=== PATIENT | female | born 1940 | race Caucasian/White ===

== ENCOUNTER 2019-04-01 07:49 | Day surgery (SDC) | payer OTHER ==
[2019-03-18 10:10] LABS: HEMATOCRIT 40.5 % (37.0-47.0); HEMOGLOBIN 13.1 gm/dL (12.0-15.0); MCH 29.9 pg (26.0-34.0); MCHC 32.3 g/dL (28.0-37.0); MCV 92.5 fL (80.0-100.0); RBC 4.38 mil/uL (4.20-5.00); RDW 13.3 % (10.5-14.5); WBC 9.3 thou/uL (4.0-11.0)
[2019-03-18 10:13] LABS: URINE BILIRUBIN NEGATIVE (Negative); URINE BLOOD NEGATIVE (Negative); URINE CLARITY CLEAR; URINE COLOR YELLOW; URINE GLUCOSE-RANDOM* NEGATIVE (Negative); URINE KETONES NEGATIVE (Negative); URINE NITRITE-REFLEX NEGATIVE (Negative); URINE PROTEIN (DIPSTICK) NEGATIVE (Negative); URINE SPECIFIC GRAVITY >= 1.030 (1.005-1.035); URINE UROBILINOGEN 0.2 E.U./dl (0.2-1.0)
[2019-03-18 10:22] LABS: URINE LEUKOCYTES-REFLEX 2+ (Negative)
[2019-03-18 10:25] LABS: ALBUMIN 4.1 g/dL (3.4-5.0); CALCIUM 9.6 mg/dL (8.5-10.1); CREATININE 1.4 mg/dL (0.6-1.0); POTASSIUM 4.3 mmol/L (3.5-5.1); PROTIME 10.2 Seconds (9.3-11.4)
[2019-03-18 10:35] LABS: SQUAMOUS 0-3 Few /LPF (0-3)
[2019-03-18 10:36] LABS: CASTS None Seen /LPF (None Seen); CRYSTALS None Seen /LPF (None Seen); MUCUS 0-3 Light strn/LPF (None Seen)
[2019-03-18 10:37] LABS: URINE RBC 3-10 Few /HPF (0-2); WBC CLUMPS Few (None Seen)
--- NOTE | 2019-03-18 13:10 | EKG ---
[place] [address] [facility] [place] [address] ELECTROCARDIOGRAM REPORT Name: KARLOSNIKIKEM Room #: PRE [facility]#: [id number] Admission: Attend Phys: Cayetano Crawley MD Discharge: Date of : 36 Report #: [id number] THIS REPORT FOR: //name// [facility] Test Date: 2019-03-18 Test Time: 09:34:32 Pat Name: KEM CORTEZ Department: Room: Gender: F Food Technologist: Lety ALEGRIA : 1940 Requested By: Cayetano Crawley Order Number: [id number] MD: Frank Hall Measurements Intervals [place] Rate: 72 P: -39 NM: 155 QRS: -5 QRSD: 81 T: 30 QT: 380 QTc: 416 Interpretive Statements Sinus rhythm Normal tracing No previous ECG available for comparison Electronically Signed On 03-18-2019 13:10:16 BOOK OR SCRIPT EDITOR by Frank Hall [email or web address] <ELECTRONICALLY SIGNED> By: Frank Hall MD, [facility] 03/18/19 1310 0934 3 Frank Hall MD, FACC /EPI
[2019-03-20 13:31] LABS: URINE BILIRUBIN NEGATIVE (Negative); URINE BLOOD NEGATIVE (Negative); URINE CLARITY CLEAR; URINE COLOR YELLOW; URINE GLUCOSE-RANDOM* NEGATIVE (Negative); URINE KETONES NEGATIVE (Negative); URINE NITRITE-REFLEX NEGATIVE (Negative); URINE PROTEIN (DIPSTICK) TRACE (Negative); URINE SPECIFIC GRAVITY 1.025 (1.005-1.035); URINE UROBILINOGEN 0.2 E.U./dl (0.2-1.0)
[2019-03-20 13:32] LABS: URINE LEUKOCYTES-REFLEX 2+ (Negative)
[2019-03-20 14:27] LABS: CASTS None Seen /LPF (None Seen); SQUAMOUS 0-3 Few /LPF (0-3)
[2019-03-20 14:28] LABS: CRYSTALS None Seen /LPF (None Seen); URINE RBC 0-2 Rare /HPF (0-2); URINE WBC-REFLEX >25 Many /HPF (0-5)
[~2019-04-01] VITALS: Ht 157.5 cm; Wt 68.9 kg
[2019-04-01] VITALS (7 sets, daily range): BP systolic 95–139; BP diastolic 6–78
[~2019-04-01 07:49] MED LIST: ALEVE220 MG PO; ASPIR-LOW81 MG PO; B COMPLEX1 EACH PO; BENAZEPRIL HCL20 MG PO; CRANBERRY300 MG PO; LUTEIN6 M1 PO; MULTIVITAMIN PO; TYLENOL325 MG PO
[2019-04-01 09:14] LABS: URINE BILIRUBIN NEGATIVE (Negative); URINE BLOOD NEGATIVE (Negative); URINE CLARITY CLEAR; URINE COLOR YELLOW; URINE GLUCOSE-RANDOM* NEGATIVE (Negative); URINE KETONES NEGATIVE (Negative); URINE LEUKOCYTES 1+ (Negative); URINE NITRITE NEGATIVE (Negative); URINE PROTEIN (DIPSTICK) NEGATIVE (Negative); URINE SPECIFIC GRAVITY 1.025 (1.005-1.035); URINE UROBILINOGEN 0.2 E.U./dl (0.2-1.0)
[2019-04-01 09:39] LABS: CASTS None Seen /LPF (None Seen); MUCUS 0-3 Light strn/LPF (None Seen); SQUAMOUS 0-3 Few /LPF (0-3)
[2019-04-01 09:40] LABS: BACTERIA 1-9 Few /HPF (None Seen); CRYSTALS None Seen /LPF (None Seen); URINE RBC None Seen /HPF (0-2); URINE WBC 6-15 Few /HPF (0-5)
--- NOTE | 2019-04-01 16:59 | NUR ---
PT CARE ASSUMED AT 1300. A&Ox4. PT IS POST OP WITH A SIDNEY DRESSING, SCD'S, TEDHOSES, AND POLAR PACK. PT HAD TO HAVE A NEW IV PLACED. Андрйе MONTEIRO WAS DC'D. NEW IV IS R. AC. PT HAS BEEN UP WITH PT AND BECAME A LITTLE DIZZY BUT WALKED TO THE DOOR AND BACK. PT IS UP WITH GAITBELT AND WALKER. FLUIDS INFUSING. IV ANTIBIOTICS INFUSING. ADMISSION COMPLETE.
--- NOTE | 2019-04-02 02:44 | NUR ---
ASSESSED AT START OF SHIFT A&OX4 IV INTACT AND FLUIDS INFUISING UP WITH ASSISTX1 TO THE BATHROOM. SIDNEY DRESSING AND POLAR PACK INTACT. PAIN MED GIVENX1 THIS SHIFT. FALL PREC IN PLS AND CALL LIGHT IN REACH WILL CONT TO MONITOR TILL EOS.
[2019-04-02 04:14] VITALS: BP 109/64
[2019-04-02 05:44] LABS: HEMATOCRIT 33.3 % (37.0-47.0); MCH 30.6 pg (26.0-34.0); RBC 3.58 mil/uL (4.20-5.00); RDW 13.4 % (10.5-14.5); WBC 12.7 thou/uL (4.0-11.0)
[2019-04-02 07:23] VITALS: BP 125/69
--- NOTE | 2019-04-02 11:39 | NUR ---
PT CARE ASSUMED AT 0700. A&Ox4. PT IS UP WITH PHYSICAL THERAPY AND TOLERATES THIS WELL. PT WILL DO THE STAIRS THIS AFTERNOON BEFORE DISCHARGING. PT IS A OBSERVATION PATIENT. VITALS ARE STABLE. SIDNEY DRESSING INTACT. POLARPACK/SCD'S/TEDHOSES IN PLACE. PT HAD A GOOD MORNING. IV PATENT WITH NO REDNESS OR SWELLING. IV FLUIDS COMPLEETED. BED IN LOW POSITION, BED LOCKED WITH BED ALARM IN PLACE. CALL LIGHT IN REACH.
[2019-04-02 12:49] VITALS: BP 125/69
--- NOTE | 2019-04-02 12:53 | NUR ---
Pt is s/p tkr with anticipated dc to home this afternoon. Sr. Operations Manager visited with the pt and one of her dtrs (sanjeev) at bedside. She indicates that she lives alone and her home has two steps to enter. Her dtr lives a mile away and can help as needed. She prefers HH therapy as she anticipates being homebound for a couple of weeks. Transition to outpt discussed. She does not have a rwalker. Options for hh f/u and dme discussed. Pt denies preference as long as the providers are in network with her insurance plan. Referral for a rwalker called to both [facility] and [facility]. [facility] is in network and can deliever one to her room prior to dc today. DC menu planner to fax referral to both [facility] and [facility] to verify they accept her ins plan. Pt's dtr can take her home today. Care team updated.
--- NOTE | 2019-04-02 13:38 | NUR ---
FAXED REFERRAL TO [facility] FOR A FWW SPOKE WITH REGINA AT [facility] HE RECEIVED REFERRAL AND WILL DELIVER WALKER PRIOR TO DC TODAY.
[2019-04-02 14:06] VITALS: BP 125/69
[2019-04-02] MEDS ORDERED: NEURONTIN 300300 M1 PO (14:10)
[2019-04-02] MEDS ORDERED: ASPIR-LOW81 MG PO (14:10)
--- NOTE | 2019-04-02 14:14 | O ---
[facility] [place] [address] OPERATIVE REPORT Name: KEM CORTEZ Room #: 443-P [facility]..#: [id number] Admission: 04/01/19 Attend Phys: Cayetano Crawley MD Discharge: Date of : 36 Report #: [id number] THIS REPORT FOR: //name// CC: Bang Crawley DATE OF SERVICE: 04/01/2019 PREOPERATIVE DIAGNOSIS: Left knee valgus osteoarthritis. POSTOPERATIVE DIAGNOSIS: Left knee valgus osteoarthritis. PROCEDURE: Left total knee arthroplasty using Navio robotic assistant womens volleyball coach. SURGEON: Cayetano Crawley MD. MRI MANAGER: Amelia Enciso PA-C. INDICATIONS FOR MRI MANAGER: Throughout the case, extensive retraction and manipulation of the knee was required. This was afforded to me by my assistant womens volleyball coach. ANESTHESIA: LMA with an adductor canal block. IMPLANTS: [employer] size 5 narrow Legion cobalt chrome posterior stabilized femur, size 3 tibia, size 11 constrained polyethylene and size 32 patella. TOURNIQUET TIME: 59 minutes. ESTIMATED BLOOD LOSS: 25 mL. COMPLICATIONS: None. SPECIMENS: None. CONDITION UPON LEAVING THE OPERATING ROOM: Stable. INDICATIONS FOR PROCEDURE: The patient is an 78-year-old female with severe left knee valgus osteoarthritis. She had failed conservative measures for this and after discussion with her, she elected for left total knee arthroplasty. DESCRIPTION OF PROCEDURE: Risks, benefits, alternatives, complications were discussed in detail with the patient including but not limited to risk of anesthesia, risk of damage to nerves, arteries, blood vessels, risk for infection, bleeding, risk for continued knee pain, need for reoperation. Informed consent was obtained from the patient and the left knee was [facility] [address] [place] [address] OPERATIVE REPORT Name: KEM CORTEZ Room #: 443-P [facility] M..#: [id number] Admission: 04/01/19 Attend Phys: aCyetano Crawley MD Discharge: Date of : 36 Report #: [id number] appropriately marked in the preoperative holding area. IV Ancef was given for preoperative antibiotics. Adductor canal block was placed by Anesthesia. She was brought to the operating room and placed in supine position on operating room table. LMA anesthesia was induced without complication. Tourniquet was placed on the left thigh. Left lower extremity was prepped and draped in normal sterile fashion. Timeout was performed properly identifying the patient and procedure as well as the instrumentation and implants. All in the operating room were in agreement. Left lower extremity was exsanguinated, tourniquet was inflated. Tourniquet time was 59 minutes. Standard midline approach to knee was made with 10 blade through the skin. Dissection was taken down sharply to the fascia and deep flaps were developed medially and laterally. Fresh 10 blade was used to make a medial parapatellar arthrotomy and the knee was inspected. There was severe valgus osteoarthritic change. ACL and PCL were removed sharply. Reference pins were placed in the femur and the tibia. The knee was then digitally mapped using the Medbox robotic system. We sized the size 5 femur and a size 3 tibia with an 11 spacer. After acceptance of the intraoperative plan, the distal femoral cut was made with a Navio bur. The 4-in-1 cutting block size 5 was then placed and anterior, posterior and chamfer cuts were made on the femur. After this, attention was turned to the tibia. The remainder of the menisci removed with Bovie cautery. Tibia resection guide was pinned in place using the Navio for placement and tibial resection was made. After this, flexion and extension gaps were checked and found to have good balance laterally in flexion and extension medially. She was loose and it was felt we could make up for this with a constrained implant given her previous valgus deformity. After this, tibia was sized, found to be a size 3. A size 3 tibial trial was placed, pinned and punched. A size 5 femoral trial was placed and the box cut was made. This was then trialed with a size 11 constrained polyethylene. Knee was taken through range of motion, found to be stable, found to have good balance in flexion and extension both medially and laterally. After this, 9 mm was resected from the posterior surface of the patella and a size 32 patellar trial button was placed. Knee was taken through range of motion, found to be stable, found to have good patellar tracking. Trial components were removed. Bony ends were thoroughly irrigated with normal saline. A final size 3 tibia, size 5 narrow Legion cobalt chrome posterior stabilized femur and a size 32 patella were cemented in place using standard cementation techniques. While the cement cured, a periarticular injection consisting of morphine, ropivacaine, epinephrine and Toradol was placed around the knee joint capsule. After the cement cured, the tourniquet was deflated. Hemostasis was obtained with Bovie cautery. Final size 11 constrained polyethylene was placed. A gram of vancomycin was placed deep in the joint. The fascia was closed with 0 Vicryl, skin was closed with 2-0 Vicryl, 3-0 Monocryl. Dermabond and a SIDNEY dressing [address] [address] OPERATIVE REPORT Name: KEM CORTEZ Room #: 443-P [facility].#: [id number] Admission: 04/01/19 Attend Phys: Cayetano Crawley MD Discharge: Date of : 36 Report #: [id number] was applied. The patient tolerated this procedure well and went to recovery room under care of anesthesia postoperatively. <ELECTRONICALLY SIGNED> By: Cayetano Crawley MD 04/02/19 1414 1140 1148 Cayetano Crawley MD /nt
[2019-04-02 14:21] VITALS: BP 125/69
[2019-04-02 15:14] VITALS: BP 125/69
== END 2019-04-02 17:50 | disposition home or self-care (01) ==
LOC: OR 07:49 → TBA 08:00 → PRE 08:55 → 4S 11:54 → PRE 13:19 → EDSTATUS 16:16 → OR 16:20 → ENTRNSPT 04-02 14:49 → EDTRNSPTSTS 04-02 14:56 → OR 04-02 17:50
PROVIDERS: Orthopaedic Surgery
DX: M17.12 Unilateral primary osteoarthritis, left knee (principal); M25.562 Pain in left knee; E66.3 Overweight; I10 Essential (primary) hypertension; Z98.890 Other specified postprocedural states; Z79.899 Other long term (current) drug therapy; Z79.82 Long term (current) use of aspirin; Z87.891 Personal history of nicotine dependence; Z98.42 Cataract extraction status, left eye; Z98.84 Bariatric surgery status
CPT/HCPCS: 27447; S2900; 50010; 50101; 50415; 50954; 51130; 51225; 51320; 52001; 52282; 53000; 53078; 53364; 54118; 56527; 56528; 57095; 57103; 57110; 57127; 57180; 62110; 62900; 64043; 65060; 70005